=== PATIENT | male | born 1985 | race Caucasian/White ===

== ENCOUNTER 2022-09-28 18:06 | Emergency (ER) | payer MEDICAID ==
[~2022-09-28] VITALS: Ht 157.5 cm; Wt 70.0 kg
[~2022-09-28 18:06] MED LIST: AZIT500T2 PO; GUAI473S11 PO; HYDR1TAB PO; IBUP-1984 PO; IBUP-812 PO; MARIJUANA
[2022-09-28 18:08] VITALS: BP 136/79
[2022-09-28] MEDS ORDERED: ibuprofen 200mg tablet PO ONE (20:00)
[2022-09-28] MEDS ORDERED: HYDR-3965 PO (20:12)
== END 2022-09-28 20:36 | disposition home or self-care (01) ==
LOC: ER 18:07
DX: S60.221D Contusion of right hand, subsequent encounter (principal); M79.641 Pain in right hand; F41.9 Anxiety disorder, unspecified; F32.A Depression, unspecified; F12.90 Cannabis use, unspecified, uncomplicated; Z86.19 Personal history of other infectious and parasitic diseases; Z98.890 Other specified postprocedural states; Z79.2 Long term (current) use of antibiotics; Z79.899 Other long term (current) drug therapy; X58.XXXD Exposure to other specified factors, subsequent encounter
CPT/HCPCS: 73130; 99283

== ENCOUNTER 2024-10-20 17:28 | Emergency (ER) | payer MEDICAID ==
[~2024-10-20] VITALS: Ht 160 cm; Wt 56.8 kg
[2024-10-20] MEDS: proparacaine 0.5% ophthalmic drops 15ml EACHEYE ONE (18:29)
[2024-10-20] MEDS ORDERED: ERYT1OIN6 EACHEYE (18:45)
[2024-10-20 19:04] VITALS: BP 116/75; PULSE 70; RESP 18; TEMP 98.6; O2SAT 99
== END 2024-10-20 19:07 | disposition home or self-care (01) ==
LOC: ER 17:29
DX: S05.02XA Injury of conjunctiva and corneal abrasion without foreign body, left eye, initial encounter (principal); F41.9 Anxiety disorder, unspecified; F32.A Depression, unspecified; F12.90 Cannabis use, unspecified, uncomplicated; Z98.890 Other specified postprocedural states; X58.XXXA Exposure to other specified factors, initial encounter; Y93.89 Activity, other specified; Y92.89 Other specified places as the place of occurrence of the external cause; Y99.8 Other external cause status
CPT/HCPCS: 99283